=== PATIENT | male | born 1960 | race Caucasian/White ===

== ENCOUNTER → 2023-12-16 12:39 | Outpatient (REF) | payer OTHER, SELFPAY | LOC: RAD 12:39 | PROVIDERS: ATTENDING PHYSICIAN Physician Assistant Medical; FAMILY PHYSICIAN Physician Assistant Medical | DX: M54.42 Lumbago with sciatica, left side (principal); M25.552 Pain in left hip | CPT/HCPCS: 72110; 73502 ==

== ENCOUNTER 2023-12-27 11:07 | Emergency (ER) | payer OTHER, SELFPAY ==
[2023-12-27 11:27] VITALS: BP 152/107
[2023-12-27 11:54] VITALS: BMI 33.1
--- NOTE | 2023-12-27 12:39 | ED.GENMED ---
History of Present Illness
General
Chief Complaint: Back Pain
Source: patient
Exam Limitations: none
Time Seen by Provider: 12/27/23 12:05
Nursing documentation reviewed up to this point in time: agreed with
Travel History
Have you had any contact with someone who has COVID-19?: No
Do you have any symptoms of coronavirus? Fever > 100 degrees, chills, cough, shortness of breath, sore throat, loss of taste or smell, muscle aches, or headache?: No
History of Present Illness
History of Present Illness:
63-year-old male with past medical history of hypertension hyperlipidemia, heart disease status post stent 5 years ago presenting to the emergency department today with concerns of back pain mainly to the left side with radiation to the left lower
extremity over the past 4 weeks intermittent tingling to the left leg feels some slight decrease strength as well. Has an MRI scheduled in 7 days but was concerned that symptoms were ongoing. Was treated with steroids 4 weeks ago but symptoms have
been worsening over the past week. He is also been taking Flexeril intermittently.
Past History
Past History
ED Past Medical History: CAD and HI
ED Past Surgical History: Cardiac
Social History
Tobacco: Former smoker
Alcohol: None
Drug: None
Personal:
Living: with family
Review of Systems
Review of Systems
Allergies reviewed?: Yes
All Other Systems: ROS reviewed and negative except as documented in HPI and ROS
Phy Exam
Physical Exam
Physical Exam:
GENERAL: Alert , in no apparent distress
EYE: pupils equal and reactive
NECK: Supple, no significant adenopathy.
ENT: o/p clr, mmm.
CARDIAC: Regular rate and rhythm .
LUNGS: Clear breath sounds bilaterally, no acute respiratory distress, no wheezes/rales/rhonchi
ABDOMEN: Soft, without focal tenderness, no r/g, no cvat
NEUROLOGICAL: Alert and oriented, no focal neuro deficits moving lower extremities normally good strength bilaterally. Normal sensation bilaterally. Does have slight decreased dorsiflexion of the left ankle.
SKIN: Warm and dry, skin intact.
MUSCULOSKELETAL: No edema, well perfused.
PSYCH: Normal and appropriate interaction.
Course
Orders/Labs/Results
Orders:
Orders
12/27/23 12:32
Dexamethasone [Decadron] 10 mg PO NOW STA
Diazepam [Valium] 5 mg PO NOW STA
Vital Signs
Initial and Last Documented VS:
Initial Vital Signs
Temp Pulse Resp BP Pulse Ox
98.1 F 70 18 152/107 95
12/27/23 11:27 12/27/23 11:27 12/27/23 11:27 12/27/23 11:27 12/27/23 11:27
Last Documented Vital Signs
Temp Pulse Resp BP Pulse Ox
98.1 F 70 18 152/107 95
12/27/23 11:27 12/27/23 11:27 12/27/23 11:27 12/27/23 11:27 12/27/23 11:27
MDM/Problems Addressed
MDM/Problems Addressed:
63-year-old male presenting to the emergency department today with concerns of ongoing back pain with radiation down the left leg and slight decreased strength in the left leg intermittently. Here objectively he has normal strength lower
extremities bilaterally does appear to have slightly less range of motion with dorsiflexion of the left foot. Does have 5 out of 5 strength with dorsiflexion. No saddle anesthesia no red flag symptoms of spinal epidural abscess no fevers no
immunosuppressive history no change in bowel or bladder function. Concerning this MRI does not appear to be indicated. Had an x-ray recently that did not show significant emergent findings other than potential disc disease. Plan for treatment
with steroid to reduce inflammation as well as muscle relaxer. Patient with improvement of symptoms able to ambulate in the room will follow-up closely with the back doctor. Return precautions given.
*Critical Care Note
Total Time (30-74mins, 75-104mins- exclusive of procedures): Not Applicable
ED Attending Note
-
Portions of this chart may have been created with voice recognition software.� Occasional wrong word or��sound alike� substitutions may have occurred due to the inherent limitations of voice recognition software.
Discharge Plan
Departure
Patient Disposition: Home (Routine Discharge)
Date of Disposition: 12/27/23
Time of Disposition: 14:06
Patient with high blood pressure during this ER visit?: No
Condition: Good
Discharge Problem:
Back pain
Instructions: Low Back Pain (DC)
Prescriptions:
New
prednisone 50 mg tablet
50 mg PO DAILY 5 Days Qty: 5 0RF
diazepam [Valium] 5 mg tablet
5 mg PO HS PRN (Reason: muscle spasm) Qty: 7 0RF
No Action
fluticasone propionate [Flonase Allergy Relief] 9.9 ML spray,suspension
1 puff intranasal DAILY
aspirin 81 MG tablet,chewable
81 mg PO DAILY 0RF
nitroglycerin 0.4 MG tablet, sublingual
0.4 mg sublingual [id number] PRN (Reason: chest pain) Qty: 25 4RF
atorvastatin 40 mg Tablet
40 mg PO DAILY
metoprolol succinate 50 mg Tablet Extended Release 24 Hr
50 mg PO DAILY
losartan 25 mg Tablet
25 mg PO DAILY
lorazepam 0.5 mg Tablet
1 mg PO PRN PRN (Reason: anxiety)
Medical Marijuana
1 gummy PO .2-3X/WEEK
Referrals:
Kaur Murillo PA-C [Family Provider] -
Robin Roy MD [Active] - Follow up in 5-7 days
Activity Restrictions/Additional Instructions:
You came to the emergency department today with concerns of back discomfort. Please take the prescribed medications and follow closely with your back doctor and to follow-up closely for your MRI. Return to the emergency department any worsening,
new or concerning symptoms.
Interventions
Interventions:
*Risk Screen - Suicide Last Done: 12/27/23 11:54
*General Assessment Last Done: 12/27/23 11:27
*Neglect/Abuse Screening Last Done: 12/27/23 11:54
*ED COVID-19 Vaccine History Last Done: 12/27/23 11:27
ED-Musculoskeletal Assessment Last Done: 12/27/23 11:54
[2023-12-27] MEDS: VALIUM 5 MG PO (12:41)
[2023-12-27] MEDS: DECADRON 10 MG PO (12:42)
[2023-12-27 14:46] VITALS: BP 148/95
== END 2023-12-27 15:03 | disposition home or self-care (01) ==
LOC: EMR 11:07
PROVIDERS: EMERGENCY PHYSICIAN Emergency Medicine; FAMILY PHYSICIAN Physician Assistant Medical
DX: M54.9 Dorsalgia, unspecified (principal); E78.00 Pure hypercholesterolemia, unspecified; I11.0 Hypertensive heart disease with heart failure; I50.9 Heart failure, unspecified; I25.10 Atherosclerotic heart disease of native coronary artery without angina pectoris; Z87.891 Personal history of nicotine dependence
CPT/HCPCS: 99282

== ENCOUNTER → 2024-01-04 06:50 | Outpatient (REF) | payer OTHER, SELFPAY | LOC: PAVMRI 06:50 | PROVIDERS: ATTENDING PHYSICIAN Physician Assistant Medical; FAMILY PHYSICIAN Physician Assistant Medical | DX: M54.16 Radiculopathy, lumbar region (principal) | CPT/HCPCS: 72148 ==

== ENCOUNTER 2024-01-09 13:40 | Emergency (ER) | payer OTHER, SELFPAY ==
[2024-01-09 13:44] VITALS: BP 162/92
[2024-01-09 14:33] VITALS: BMI 33.7
[2024-01-09 14:45] VITALS: BP 162/100
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
[2024-01-09 16:00] VITALS: BP 158/97
[2024-01-09 16:20] VITALS: BP 158/97
--- NOTE | 2024-01-09 16:38 | EDRN ---
Reviewed discharge instructions with patient. Verbalized understanding. Taken to lobby in wheelchair.
== END 2024-01-09 16:25 | disposition home or self-care (01) ==
LOC: EMR 13:40
PROVIDERS: EMERGENCY PHYSICIAN Emergency Medicine; FAMILY PHYSICIAN Physician Assistant Medical
DX: M54.50 Low back pain, unspecified (principal); G89.29 Other chronic pain; V19.9XXA Pedal cyclist (driver) (passenger) injured in unspecified traffic accident, initial encounter; I10 Essential (primary) hypertension; I25.10 Atherosclerotic heart disease of native coronary artery without angina pectoris; Z87.891 Personal history of nicotine dependence; Z85.46 Personal history of malignant neoplasm of prostate; Z95.5 Presence of coronary angioplasty implant and graft
CPT/HCPCS: 99283; 73502

== ENCOUNTER 2024-04-04 14:22 | Outpatient (RCR) | payer OTHER, SELFPAY | END 2024-04-04 23:59 | disposition home or self-care (01) | LOC: RPT 14:22 | PROVIDERS: ATTENDING PHYSICIAN Physician Assistant Medical; FAMILY PHYSICIAN Physician Assistant Medical | DX: M96.1 Postlaminectomy syndrome, not elsewhere classified (principal); Z73.6 Limitation of activities due to disability | CPT/HCPCS: 97110; 97162 ==

== ENCOUNTER 2024-05-10 14:08 | Outpatient (RCR) | payer OTHER, SELFPAY | END 2024-05-10 23:59 | disposition home or self-care (01) | LOC: RPT 14:08 | PROVIDERS: ATTENDING PHYSICIAN Physician Assistant Medical; FAMILY PHYSICIAN Physician Assistant Medical | DX: M96.1 Postlaminectomy syndrome, not elsewhere classified (principal); Z73.6 Limitation of activities due to disability | CPT/HCPCS: 97110; 97112 ==

== ENCOUNTER 2024-05-17 13:46 | Outpatient (RCR) | payer OTHER, SELFPAY | END 2024-05-17 23:59 | disposition home or self-care (01) | LOC: RPT 13:46 | PROVIDERS: ATTENDING PHYSICIAN Physician Assistant Medical; FAMILY PHYSICIAN Physician Assistant Medical | DX: M96.1 Postlaminectomy syndrome, not elsewhere classified (principal); Z73.6 Limitation of activities due to disability | CPT/HCPCS: 97110; 97112 ==

== ENCOUNTER → 2025-09-20 06:55 | Outpatient (REF) | payer MEDICARE, SELFPAY | LOC: RCS 06:55 | PROVIDERS: ATTENDING PHYSICIAN Internal Medicine Cardiovascular Disease; FAMILY PHYSICIAN Physician Assistant Medical | DX: I25.10 Atherosclerotic heart disease of native coronary artery without angina pectoris (principal); R06.09 Other forms of dyspnea | CPT/HCPCS: 78452; 93017; A9500 ==

== ENCOUNTER → 2025-09-27 16:37 | Outpatient (REF) | payer MEDICARE, SELFPAY | LOC: RCS 16:37 | PROVIDERS: ATTENDING PHYSICIAN Internal Medicine Cardiovascular Disease; FAMILY PHYSICIAN Physician Assistant Medical | DX: I25.10 Atherosclerotic heart disease of native coronary artery without angina pectoris (principal); R06.09 Other forms of dyspnea | CPT/HCPCS: 93306 ==